=== PATIENT | male | born 1995 | race African-American/Black ===

== ENCOUNTER → 2020-06-07 11:14 | Emergency (ER) | payer MEDICAID, OTHER ==
[~2020-06-07] VITALS: Ht 182.9 cm; Wt 113.4 kg
[~2020-06-07 11:14] MED LIST: ACETAMINOPHEN 500 MG TAB PO ONE; KETOROLAC TROMETH 30 MG/ML 1ML VIAL IV ONE; TETANUS-DIPTH-ACEL PERTUSSIS 0.5ML SYR Tdap IM ONE
[2020-06-07 12:58] VITALS: BP 128/74
== END | disposition home or self-care (01) ==
LOC: ER 11:14
DX: S41.011A Laceration without foreign body of right shoulder, initial encounter (principal); X58.XXXA Exposure to other specified factors, initial encounter; Y93.89 Activity, other specified; Y92.89 Other specified places as the place of occurrence of the external cause; Y99.8 Other external cause status
CPT/HCPCS: 12001; 71045; 90471; 90715; 96374; 99284; J1885

== ENCOUNTER 2020-06-15 10:47 | Emergency (ER) | payer OTHER ==
[~2020-06-15] VITALS: Ht 172.7 cm; Wt 117.9 kg
[2020-06-15 10:50] VITALS: BP 122/98
== END 2020-06-15 11:45 | disposition home or self-care (01) ==
LOC: ER 10:47
DX: S41.111D Laceration without foreign body of right upper arm, subsequent encounter (principal); L08.9 Local infection of the skin and subcutaneous tissue, unspecified; X58.XXXD Exposure to other specified factors, subsequent encounter